=== PATIENT | male | born 1975 | race Caucasian/White ===

== ENCOUNTER 2016-11-14 01:12 | Inpatient (IN) | payer OTHER ==
[~2016-11-14] VITALS: Ht 177.8 cm; Wt 80.4 kg
--- NOTE | ~2016-11-14 | FD ---
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 arranged. Dylan Prieto DO/ usamal JOB #: [id number] CC: Dylan Prieto DO, Attending Physician Dylan Prieto DO, Family Physician
--- NOTE | 2016-11-14 12:02 | CO ---
ADMIT: 11/14/2016 RM/LOC: 405 [facility] MR#: [id number] [id number] [place], [place] [address] MUMTAZ OROPEZA [address] [place] [address] Consultation SEX: M AGE: 40 : 1975 DATE OF CONSULTATION: 11/14/2016 ATTENDING PHYSICIAN: Dylan Prieto CONSULTING PHYSICIAN: Garcia Aguilar MD REASON FOR CONSULTATION: Splenomegaly on CT and left upper quadrant abdominal pain. HISTORY OF PRESENT ILLNESS: Mumtaz is a very pleasant, 40-year-old male, who states that he has had some intermittent abdominal pain in his left upper quadrant for the last few weeks. He describes his pain is both sharp and dull in nature and ranges from about a 3 to 4 usually, and gets up to 7/10 pain sometimes as well. He has had some nausea with this but denies any emesis. He also endorses a 15 pounds weight loss in the last month and lack of appetite. His abdominal pain also radiates to his left flank up to his left chest and left shoulder. He further denies any bowel problems, trauma, or previous diagnosis of mono. PAST MEDICAL HISTORY: No significant history. PAST SURGICAL HISTORY: No prior surgeries. ALLERGIES: NO KNOWN DRUG ALLERGIES. MEDICATIONS: Nqet-lrc-xoukdrm ibuprofen. FAMILY HISTORY: The patient reports aunt had breast cancer. Dad had his gallbladder removed. Cousin with leukemia. An uncle with melanoma, but no other pertinent history. SOCIAL HISTORY: The patient is a rare alcohol drinker, but denies any tobacco or illicit drug use. REVIEW OF SYSTEMS: HEAD: The patient has daily headaches. Denies any lightheadedness, dizziness, or near syncopal episodes. The rest of a comprehensive 10-point review of systems was performed and all other systems are negative. PHYSICAL EXAMINATION: GENERAL: The patient is in no acute distress. He is supine. HEENT: Head is normocephalic and atraumatic. EOMs are intact. Conjunctivae free of icterus, erythema, or pallor. Pinnae, free of deformities. Nose, midline. No tracheal deviation. NECK: Supple. SKIN: Negative for jaundice, clubbing, edema, pallor, or cyanosis. LUNGS: Normal respiratory effort. HEART: Distal pulses intact. Regular rate and rhythm. ABDOMEN: Soft and nondistended. Splenomegaly noted upon palpation. Tender ADMIT: 11/14/2016 RM/LOC: 405 [facility] MR#: [id number] [address] [address] MUMTAZ OROPEZA [facility] [address] [place] [address] Consultation SEX: M AGE: 40 : 1975 in left upper quadrant. This also radiates to the epigastrium. NEURO: Grossly intact. LABORATORY DATA: White blood cell count 385. DIAGNOSTIC IMAGING: CT of abdomen pelvis revealed splenomegaly in the left upper quadrant with mass effect repositioning the left kidney to midline and anterior to the abdominal aorta. ASSESSMENT: Splenomegaly. PLAN: As of right now, we are watching the patient and his hemoglobin to make sure no laceration develops. He is currently stable. I did discuss the possibility of splenectomy should be warranted; however, Dr. Aguilar will give his recommendations as well. For now, we will watch him and see how he does while in the hospital. The patient and his who was present during my whole assessment are in agreement of this plan, had all their questions answered, and would like to proceed. Thank for the consultation of this patient. ISAAK Balbuena / Garcia Aguilar MD / daniela JOB #: [id number] CC: Dylan Prieto, Attending Physician Dylan Prieto, Family Physician
--- NOTE | 2016-11-16 07:05 | ER ---
ADMIT: 11/14/2016 RM/LOC: 405 [facility] MR#: [id number] [address] [address] LACHO OROPEZA [address] [place] [address] Emergency Room Report SEX: M AGE: 40 : 1975 DATE: 11/14/2016 HISTORY: The patient is a 40-year-old male with past medical history of seizure disorder came to the ER with chief complaint of epigastric pain, which started gradually at 5:00 p.m. and increased in severity and then went to the left upper quadrant and left flank after that radiated to the left posterior upper shoulder. The patient denies any pain in the past. The patient states the pain was moderate to severe; at the moment, decreased to qoxs-ic-tofgjyno. The patient was nauseous, but did not have vomiting. The patient denies any constipation and diarrhea and last bowel movement was yesterday and was normal and the patient passed gas today. PHYSICAL EXAMINATION: VITAL SIGNS: The patient was mildly in distress, the patient was mildly tachycardic but was afebrile, the blood pressure was normal, the patient was not tachypneic. HEAD AND NECK: Exam was noncontributory. CHEST: Bilateral equal breath sounds. HEART: Normal S1 and S2 without any murmurs. ABDOMEN: Mild to moderate tenderness in the left flank and left upper quadrant and mildly in the left lower quadrant. The patient has no rebound tenderness. No guarding. Bowel sounds are normal. Considering the patient's presentation, pain was controlled with morphine. The patient received IV fluids, followup labs showed white blood cells of 385,000 with lots of immature blast cells, hemoglobin was 10.6 and platelet was 537. Urine was negative for infection, lipase was normal, electrolytes were normal, creatinine was 1.1. Followup CT scan of chest, abdomen, and pelvis was suggestive of enlarged spleen, 24 cm, without any obvious laceration, but there is small free fluid at the apex of the spleen and small laceration could not be discarded. Pain was controlled. The patient at the moment is stable, Internal Medicine Service was consulted. The patient was admitted for further followups and treatments. Steven Solorzano MD/ daniela JOB #: [id number] CC: Dylan Prieto DO, Attending Physician Dylan Prieto DO, Family Physician
--- NOTE | 2016-11-19 08:28 | CO ---
ADMIT: 11/14/2016 RM/LOC: 405 [facility] MR#: [id number] [address] [address] MUMTAZ OROPEZA [address] [place] [address] Consultation SEX: M AGE: 40 : 1975 DATE OF CONSULTATION: 11/14/2016 ATTENDING PHYSICIAN: Dylan Prieto DO CONSULTING PHYSICIAN: Garcia Aguilar MD ADDENDUM: For all details regarding the consultation, please see the full dictated consultation by ISAAK Balbuena. Mumtaz was seen in consultation for the splenomegaly. His abdomen remains soft and minimally tender without peritoneal sign. The pain he had on admission likely is related to splenic enlargement. I do not see evidence for true splenic laceration on CT, and there is no significant abdominal tenderness. I have recommended continue to be monitored but treatment of his what appears to be acute leukemia seems to be the predominant issue urgently. I discussed that with Mumtaz and he understands. Oncology consultation is pending. Garcia Aguilar MD/ modl JOB #: [id number] CC: Dylan Prieto DO, Attending Physician Dylan Prieto DO, Family Physician
--- NOTE | 2016-11-24 08:25 | HP ---
ADMIT: 11/14/2016 RM/LOC: 405 [facility] MR#: [id number] [address] [place] [id number] LACHO OROPEZA [address] [place] [address] History and Physical SEX: M AGE: 40 : 1975 DATE OF SERVICE: 11/14/2016 REASON FOR HOSPITALIZATION: Abdominal pain and elevated white blood cell count. HISTORY OF PRESENT ILLNESS: A 40-year-old, male patient, who has a remote history of seizure disorder, not currently taking any medications. He came to the emergency room with epigastric and left upper quadrant xnmmcvun-ge-saiirm pain radiating into the mid chest and left subscapular area. Emergency room evaluation found him to have a white blood cell count of 385,000 and splenomegaly with a question of a contained perforation/laceration of the spleen. He is now admitted for further management and care of underlying acute leukemia and splenomegaly. Again, he denies any prior medical problems. He is a college student, not currently employed. FAMILY HISTORY: Noncontributory. SOCIAL HISTORY: He is . MEDICATIONS: He takes no medicines. REVIEW OF SYSTEMS: The pain and discomfort as reported above. He states that he has been dealing with a respiratory infection over the past month or two, but has only had occasional chills. No night sweats or notable fevers. Denies any vomiting, but did have some nausea at the time of presentation in the emergency room. Denies shortness of breath. PHYSICAL EXAMINATION: GENERAL: He is pleasant and currently comfortable using morphine on a p.r.n. basis. HEART: Regular. ADMIT: 11/14/2016 RM/LOC: 405 [facility] MR#: [id number] [address] [place] [id number] LACHO OROPEZA [address] [place] [address] History and Physical SEX: M AGE: 40 : 1975 LUNGS: Clear. ABDOMEN: Soft, but he has a very large spleen, easily palpable below the left costal margin. LABORATORY DATA: His white count is 385,000, hemoglobin is 10.6, and platelets of 537,000. IMPRESSION: Acute leukemia with splenomegaly and question confined perforation PLAN: We are going to admit, hydrate, pain control. Watch hemoglobin and hematocrit. Ask Hematology to consult as well as Surgery to follow. Dylan Prieto DO/ daniela JOB #: [id number] CC: Dylan Prieto, Attending Physician Dylan Prieto, Family Physician
--- NOTE | 2016-11-28 09:47 | CO ---
ADMIT: 11/14/2016 RM/LOC: 405 [facility] MR#: [id number] [address] [address] LACHO OROPEZA [address] [place] [address] Consultation SEX: M AGE: 40 : 1975 DATE OF CONSULTATION: 11/14/2016 ATTENDING PHYSICIAN: Dylan Prieto DO CONSULTING PHYSICIAN: Cintia Muse MD REASON FOR CONSULTATION: Extremely elevated white blood cell count. HISTORY AND PHYSICAL: Mr. Oropeza is a 40-year-old pleasant gentleman with a history of seizure only was admitted to the hospital because of the severe abdominal pain. On the workup, he was found to have a splenomegaly with a white blood cell count of 385,000 and on the peripheral blood, there was a blast of 11%. The patient never had any sort of leukemia or any sort of any other history in the past. He is extremely in pain and on the morphine [employer] pump for pain control. He does have a cousin, who had leukemia. PAST MEDICAL HISTORY: History of seizure in 1991, but since then, he does not have any seizure. FAMILY HISTORY: Had blood pressure and diabetes in the family. SOCIAL HISTORY: He is . Currently, he does not smoke and drinks occasionally. MEDICATIONS: He takes no medications. REVIEW OF SYMPTOMS: GENERAL: In qnlq-xm-ghncmzua distress due to pain of the abdomen with no shortness of breath. RESPIRATORY: No shortness of breath. CARDIOVASCULAR: No chest pain. He does have only a little bit of chest pain when he gets a deep breath. GASTROINTESTINAL: No nausea, no vomiting. GENITOURINARY: No urgency, no frequency. ENDOCRINOLOGY: No polyuria, no polydipsia. SKIN: No rash. NUTRITION: Adequate. INFECTION: No fever. NEUROLOGY: Awake, alert, and oriented. No weakness. EXTREMITIES: No swelling. PHYSICAL EXAMINATION: VITAL SIGNS: Temperature is 100.2, pulse 99, respirations 16, blood pressure 118/62. His temperature when he came was 99.5. HEENT: Normocephalic, atraumatic. LUNGS: Clear. HEART: S1-S2 heard. Regular rate and rhythm. ABDOMEN: Soft. Mild tender on deep palpation. No rebound tenderness. Positive bowel sounds. No signs of any obstructions. EXTREMITIES: No edema. ADMIT: 11/14/2016 RM/LOC: 405 [facility] MR#: [id number] [address] [address] LACHO OROPEZA [address] [place] [address] Consultation SEX: M AGE: 40 : 1975 LYMPHATIC: No abnormal lymph nodes palpated. NEUROLOGY: Alert, awake, oriented. No focal neurological deficit. SKIN: No rash. LABORATORY DATA: His blood workup; WBC 385 with a hemoglobin of 10.6, platelets of 537 with a differential of blast 11%, promyelocyte 1%, myelocyte 7%, metamyelocyte 8% with some basophils and eosinophils on peripheral smear as per the pathologist. He has normal kidney with AST of 42, alkaline phosphatase is 175. IMAGING: His CT scan showed massive splenomegaly, the measurement is 25 cm. IMPRESSION/RECOMMENDATIONS: Mr. Oropeza is a 40-year-old, pleasant gentleman, admitted due to extremely excruciating abdominal pain with a white blood cell count of 385,000 and the massive splenomegaly with a blast of 11% and the signs of chronic myelogenous leukemia present as per our pathologist in the peripheral smear. Elevated leukocytosis with splenomegaly, very likely could be accelerated chronic myeloid leukemia. He does have a blast of 11%, but needs to make sure that there is no acute leukemia. It is pretty high level for the white blood cell count for the chronic myeloid leukemia. He does have excruciating abdominal pain. I am worried that he may have some leukostasis in the abdomen. He may also develop leukostasis and stroke as well as heart attack. Because of his very, very high white blood cell count, he will need hydration. We will continue hydration, I have increased the hydration to 150 mL/hr. I will also give him some Hydrea as well as well as allopurinol. I do not have the leukapheresis here. If his white blood cell count does not fall down, then he will be extremely in risk of leukostasis at this point of time. Therefore, I have discussed the case with Dr. Adamaris Villa, he will be immediately airlifted to [facility] for further management. I will not do any bone marrow biopsy or send any leukemia workup here because all those tests will anyway go to [facility], therefore I will let doctors out there to order all those tests. He will be immediately airlifted. A phone call already has been placed to Dr. Adamaris Villa, who has already accepted the patient and after that ADMIT: 11/14/2016 RM/LOC: 405 [facility] MR#: [id number] [address] [id number] [place] [address] Consultation SEX: M AGE: 40 : 1975 once he gets all those management over there, then in the future, I will follow up in my clinic for further management as we do not have the many resources of leukapheresis. He may actually be a candidate for leukapheresis to prevent those leukostasis. I am really worried because of his severe abdominal pain that he is developing some sort of mesenteric artery ischemia or blockade from the leukostasis. I have answered all his questions and concerns. I have also talked to his , he is pretty sick and needs to be airlifted to [place] to manage his probably accelerated chronic myeloid leukemia. Thank you very much for your consultation and opportunity in taking care of the patient. Cintia Muse MD/ daniela JOB #: [id number] CC: Dylan Prieto DO, Attending Physician Dylan Prieto DO, Family Physician
== END 2016-11-14 10:38 | disposition short-term general hospital (02) | DRG 842 ==
LOC: ER 01:12 → 4PCU 03:20
PROVIDERS: ADMIT Internal Medicine
DX: C92.Z0 Other myeloid leukemia not having achieved remission (principal); D73.5 Infarction of spleen; R16.1 Splenomegaly, not elsewhere classified

== ENCOUNTER → 2017-01-05 | Outpatient (CLI) | payer OTHER | END | disposition home or self-care (01) | DX: C92.10 Chronic myeloid leukemia, BCR/ABL-positive, not having achieved remission (principal) ==